=== PATIENT | male | born 1955 | race Caucasian/White ===

== ENCOUNTER 2018-03-04 09:38 | Emergency (ER) | payer OTHER ==
[~2018-03-04] VITALS: Ht 188 cm; Wt 95.3 kg
[~2018-03-04 09:38] MED LIST: AVODART; CARISOPRODOL 3350 MG PO; FLEXERIL PO; NORCO 5-325 TA1 EACH PO; OMEPRAZOLE; VALIUM5 MG PO; ZOCOR 20 MG TAB20 M1 PO
[2018-03-04 09:41] VITALS: BP 150/89
[2018-03-04] MEDS ORDERED: NORCO 5-325 TA1 EACH PO (09:55)
[2018-03-04] MEDS ORDERED: VALIUM5 MG PO (09:55)
== END 2018-03-04 10:05 | disposition home or self-care (01) ==
LOC: ER 09:38
DX: S39.012A Strain of muscle, fascia and tendon of lower back, initial encounter (principal); K21.9 Gastro-esophageal reflux disease without esophagitis; X50.0XXA Overexertion from strenuous movement or load, initial encounter; Y93.89 Activity, other specified; Y92.89 Other specified places as the place of occurrence of the external cause; Y99.8 Other external cause status

== ENCOUNTER 2018-10-02 09:40 | Emergency (ER) | payer OTHER ==
[~2018-10-02] VITALS: Ht 182.9 cm; Wt 90.7 kg
[2018-10-02] MEDS ORDERED: BYSTOLIC 5 MG5 M1 PO (10:05)
[2018-10-02 10:59] LABS: ABSOLUTE NEUTROPHILS 8.1 thou/uL (1.4-8.2); BASOPHILS 1.1 % (0.0-2.0); EOSINOPHILS 1.4 % (0.0-3.0); HEMATOCRIT 41.3 % (42.0-52.0); HEMOGLOBIN 14.3 gm/dL (14.0-18.0); LYMPHOCYTES 18.3 % (24.0-44.0); MCH 31.1 pg (26.0-34.0); MCHC 34.7 g/dL (28.0-37.0); MCV 89.8 fL (80.0-100.0); MONOCYTES 4.6 % (1.0-8.0); PLATELET COUNT 234 thou/uL (150-400); POLYS 74.6 % (36.0-66.0); RDW 13.8 % (10.5-14.5); WBC 10.9 thou/uL (4.0-11.0)
[2018-10-02 11:08] LABS: CALCIUM 9.2 mg/dL (8.5-10.1); POTASSIUM 4.5 mmol/L (3.5-5.1)
[2018-10-02 11:14] LABS: ALBUMIN 3.4 g/dL (3.4-5.0); TOTAL BILIRUBIN 0.3 mg/dL (<0.1-1.0); TOTAL PROTEIN 6.8 g/dL (6.4-8.2)
[2018-10-02 11:25] LABS: URINE BILIRUBIN NEGATIVE (Negative); URINE BLOOD NEGATIVE (Negative); URINE CLARITY CLEAR; URINE COLOR YELLOW; URINE GLUCOSE-RANDOM* NEGATIVE (Negative); URINE KETONES TRACE (Negative); URINE LEUKOCYTES-REFLEX NEGATIVE (Negative); URINE NITRITE-REFLEX NEGATIVE (Negative); URINE PROTEIN (DIPSTICK) NEGATIVE (Negative)
[2018-10-02] MEDS ORDERED: NORCO 5-325 TA1 EACH PO (13:17)
[2018-10-02 13:20] VITALS: BP 122/75
== END 2018-10-02 13:20 | disposition home or self-care (01) ==
LOC: ER 09:40
PROVIDERS: Emergency Medicine
DX: R10.33 Periumbilical pain (principal); E78.00 Pure hypercholesterolemia, unspecified; K21.9 Gastro-esophageal reflux disease without esophagitis